=== PATIENT | male | born 1975 | race Two or more races ===

== ENCOUNTER 2021-01-26 16:49 | Inpatient (IN) | payer BC ==
[2021-01-26 20:11] VITALS: BMI 19.5
[2021-01-27] MEDS ORDERED: BISMUTH SUBSALICYLATE 524 MG/30 ML PO PRN (02:35)
[2021-01-27] MEDS ORDERED: MAGNESIUM CITRATE 300 ML BOTTLE PO PRN (02:35)
[2021-01-27] MEDS ORDERED: ACETAMINOPHEN 325 MG TABLET (FP) PO PRN ×2 (02:35)
[2021-01-27] MEDS ORDERED: ONDANSETRON *ODT* 4 MG TABLET SL PRN (02:35)
[2021-01-27] MEDS ORDERED: MAG HYDROX/AL HYDROX/SIMETH 30 ML UNIT-DOSE CUP PO PRN (02:35)
[2021-01-27] MEDS ORDERED: METHOCARBAMOL 500 MG TABLET PO PRN (02:35)
[2021-01-27] MEDS ORDERED: MAGNESIUM HYDROX 2400MG/30ML ORAL SUSPENSION 30 ML CUP PO PRN (02:35)
[2021-01-27] MEDS ORDERED: MENTHOL/PHENOL 1 EACH UD MM PRN (02:35)
[2021-01-27] MEDS ORDERED: IBUPROFEN 400 MG TABLET (FP) PO PRN (02:35)
[2021-01-27] MEDS ORDERED: diazePAM 5 MG TABLET PO PRN (02:39)
[2021-01-27] MEDS ORDERED: diazePAM 5 MG TABLET ONE ×2 (05:49→12:32)
[2021-01-27] MEDS: diazePAM 5 MG TABLET PO SCH ×4 (05:52→22:12)
[2021-01-27] MEDS ORDERED: methaDONE HCL 40 MG DISPERSABLE TABLET PO SCH (10:00)
[2021-01-27] MEDS: PRENATAL VITAMINS W/ FOLIC ACID TABLET (FP) PO SCH (12:33)
[2021-01-27] MEDS: NICOTINE POLACRILEX 2 MG GUM BUC PRN (13:13)
[2021-01-27] MEDS ORDERED: methaDONE HCL 10 MG TABLET ONE (13:14)
[2021-01-27] MEDS: methaDONE 80 MG, methaDONE 20 MG PO SCH (13:15)
[2021-01-27] MEDS ORDERED: methaDONE HCL 40 MG DISPERSABLE TABLET ONE (13:15)
[2021-01-27] MEDS: NICOTINE 14 MG/24 HOURS TOPICAL PATCH TD SCH (13:17)
[2021-01-27] MEDS ORDERED: MELATONIN 5 MG TABLETS PO SCH (22:00)
[2021-01-27] MEDS: THIAMINE HCL 100 MG TABLET (FP) PO SCH (22:12)
[2021-01-28] MEDS ORDERED: methaDONE HCL 10 MG TABLET ONE (03:59)
[2021-01-28] MEDS ORDERED: methaDONE HCL 40 MG DISPERSABLE TABLET ONE (04:00)
[2021-01-28] MEDS: methaDONE 80 MG, methaDONE 20 MG PO SCH (05:36)
[2021-01-28] MEDS: diazePAM 5 MG TABLET PO SCH ×3 (05:37→22:13)
[2021-01-28] MEDS: PRENATAL VITAMINS W/ FOLIC ACID TABLET (FP) PO SCH (10:10)
[2021-01-28] MEDS: NICOTINE 14 MG/24 HOURS TOPICAL PATCH TD SCH (10:11)
[2021-01-28] MEDS: NICOTINE POLACRILEX 2 MG GUM BUC PRN (10:11)
[2021-01-28 10:21] LABS: ALBUMIN 3.4 g/dl (3.4-5.0); BLOOD UREA NITROGEN 13.2 mg/dL (7-18); CALCIUM 8.8 mg/dL (8.5-10.1); HEMATOCRIT 37.9 % (35.4-49); HEMOGLOBIN 12.8 GM/dL (11.7-16.9); MCH 29.8 pg (25.7-33.7); MCHC 33.8 g/dl (32.0-35.9); MEAN CELL VOLUME 88.4 fl (80-96); MEAN PLT VOLUME 7.7 fl (7.5-11.1); PLATELET COUNT 228 10^3/uL (134-434); RBC 4.28 M/mm3 (4.00-5.60)
[2021-01-28 10:24] LABS: CREATININE 0.9 mg/dL (0.55-1.3)
[2021-01-28 10:26] LABS: BILIRUBIN,TOTAL 0.3 mg/dL (0.2-1); TOT PROT 7.2 g/dl (6.4-8.2)
[2021-01-28 10:50] LABS: SYPHILIS W/ RPR CONF NON-REACTIVE (NONREACTIVE)
[2021-01-28] MEDS: THIAMINE HCL 100 MG TABLET (FP) PO SCH (22:13)
[2021-01-28] MEDS: SUVOREXANT 10 MG TABLET PO PRN (22:14)
[2021-01-29] MEDS ORDERED: methaDONE HCL 10 MG TABLET ONE (03:11)
[2021-01-29] MEDS ORDERED: methaDONE HCL 40 MG DISPERSABLE TABLET ONE (03:11)
[2021-01-29] MEDS: diazePAM 5 MG TABLET PO SCH ×2 (05:35→18:12)
[2021-01-29] MEDS: methaDONE 80 MG, methaDONE 20 MG PO SCH (05:35)
[2021-01-29] MEDS: PRENATAL VITAMINS W/ FOLIC ACID TABLET (FP) PO SCH (10:14)
[2021-01-29] MEDS: NICOTINE POLACRILEX 2 MG GUM BUC PRN (10:14)
[2021-01-29] MEDS: NICOTINE 14 MG/24 HOURS TOPICAL PATCH TD SCH (10:37)
[2021-01-29] MEDS: SUVOREXANT 10 MG TABLET PO PRN (22:25)
[2021-01-29] MEDS: THIAMINE HCL 100 MG TABLET (FP) PO SCH (22:26)
[2021-01-30 00:18] LABS: HIV INTERPRETATION NEGATIVE (NEGATIVE)
[2021-01-30] MEDS ORDERED: methaDONE HCL 40 MG DISPERSABLE TABLET ONE (03:23)
[2021-01-30] MEDS ORDERED: methaDONE HCL 10 MG TABLET ONE (03:23)
[2021-01-30] MEDS ORDERED: diazePAM 5 MG TABLET PO ONE (06:00)
[2021-01-30] MEDS: methaDONE 80 MG, methaDONE 20 MG PO SCH (06:17)
[2021-01-30 06:49] VITALS: BP 104/75
[2021-01-30 09:14] VITALS: PULSE 68; TEMP 96.9
[2021-01-30] MEDS: NICOTINE 14 MG/24 HOURS TOPICAL PATCH TD SCH (10:07)
[2021-01-30] MEDS: PRENATAL VITAMINS W/ FOLIC ACID TABLET (FP) PO SCH (10:07)
== END 2021-01-30 10:20 | disposition home or self-care (01) | DRG 773 ==
LOC: YASAS 16:49 → Y3N 01-27 12:19
PROVIDERS: ADMIT Allergy & Immunology; ATTEND Allergy & Immunology
PROC: HZ2ZZZZ Detoxification Services for Substance Abuse Treatment (ICD-10-PCS; principal; 2021-01-27)
DX: F10.230 Alcohol dependence with withdrawal, uncomplicated (principal); F11.20 Opioid dependence, uncomplicated; F13.230 Sedative, hypnotic or anxiolytic dependence with withdrawal, uncomplicated; F14.20 Cocaine dependence, uncomplicated; F12.20 Cannabis dependence, uncomplicated; F17.210 Nicotine dependence, cigarettes, uncomplicated; F19.24 Other psychoactive substance dependence with psychoactive substance-induced mood disorder; F39 Unspecified mood [affective] disorder; L98.8 Other specified disorders of the skin and subcutaneous tissue; R63.4 Abnormal weight loss; Z68.1 Body mass index [BMI] 19.9 or less, adult; Z86.19 Personal history of other infectious and parasitic diseases; Z63.4 Disappearance and death of family member; Z56.0 Unemployment, unspecified; Z59.0 Homelessness
CPT/HCPCS: 36415; 80053; 85027; 86780; 87389; 93005; 93010; C9803; U0003; U0005

== ENCOUNTER 2022-08-06 18:30 | Inpatient (IN) | payer BC ==
[2022-08-06 21:03] VITALS: BMI 18.8
[2022-08-06] MEDS ORDERED: MAG HYDROX/AL HYDROX/SIMETH 30 ML UNIT-DOSE CUP PO PRN (21:22)
[2022-08-06] MEDS ORDERED: ACETAMINOPHEN 325 MG TABLET (FP) PO PRN (21:22)
[2022-08-06] MEDS ORDERED: BENZOCAINE/MENTHOL (CHLORASEPTIC ) LOZENGE MM PRN (21:22)
[2022-08-06] MEDS ORDERED: IBUPROFEN 400 MG TABLET (FP) PO PRN (21:22)
[2022-08-06] MEDS ORDERED: guaiFENesin 200 MG/10 ML 10 ML UNIT-DOSE CUPS PO PRN (21:22)
[2022-08-06] MEDS ORDERED: LOPERAMIDE HCL 2 MG CAPSULE PO PRN (21:22)
[2022-08-06] MEDS ORDERED: P-EPHED 60MG/TRIPROLIDI 2.5MG TABLET PO PRN (21:22)
[2022-08-06] MEDS ORDERED: QUEtiapine FUMARATE 200 MG TABLET PO ONE (23:56)
[2022-08-07] MEDS: THIAMINE HCL 100 MG TABLET (FP) PO SCH ×2 (00:40→21:22)
[2022-08-07] MEDS: methaDONE HCL 40 MG DISPERSABLE TABLET PO SCH (08:53)
[2022-08-07] MEDS: PRENATAL VITAMINS W/ FOLIC ACID TABLET (FP) PO SCH (10:47)
[2022-08-07 11:46] LABS: EPI CELLS 10 /uL (0-25.1); HYALINE CASTS 0 /uL (0-3.1); PH,URINE 7.5 (5.0-8.0); URINE APPEARANCE CLEAR; URINE BACTERIA 36 /uL (0-1359); URINE BILIRUBIN NEGATIVE (NEGATIVE); URINE COLOR YELLOW; URINE GLUCOSE (UA) NEGATIVE (NEGATIVE); URINE KETONE NEGATIVE (NEGATIVE); URINE LEUK ESTERASE 2+ (NEGATIVE); URINE NITRITE NEGATIVE (NEGATIVE); URINE PROTEIN NEGATIVE (NEGATIVE); URINE RBC 1 /uL (0-23.9); URINE UROBILINOGEN 0.2 mg/dL (0.2-1.0); URINE WBC 84 /uL (0-25.8)
[2022-08-07 12:32] LABS: HEMATOCRIT 42.1 % (35.4-49); HEMOGLOBIN 13.7 GM/dL (11.7-16.9); MCH 29.7 pg (25.7-33.7); MCHC 32.6 g/dl (32.0-35.9); MEAN CELL VOLUME 91.1 fl (80-96); MEAN PLT VOLUME 8.5 fl (7.5-11.1); PLATELET COUNT 214 10^3/uL (134-434); RBC 4.62 M/mm3 (4.00-5.60); RDW 14.3 % (11.9-15.9); WHITE BLOOD COUNT 3.3 K/mm3 (4.0-10.0)
[2022-08-07 13:01] LABS: TOT PROT 7.4 g/dl (6.4-8.2)
[2022-08-07 13:03] LABS: CALCIUM 9.1 mg/dL (8.5-10.1)
[2022-08-07 13:04] LABS: ALBUMIN 3.9 g/dl (3.4-5.0); BLOOD UREA NITROGEN 15.5 mg/dL (7-18)
[2022-08-07 13:08] LABS: CREATININE 0.9 mg/dL (0.55-1.3)
[2022-08-07 13:09] LABS: BILIRUBIN,TOTAL 0.3 mg/dL (0.2-1)
[2022-08-07] MEDS: MELATONIN 5 MG TABLETS PO PRN (21:22)
[2022-08-07] MEDS: QUEtiapine FUMARATE 200 MG TABLET PO SCH (21:22)
[2022-08-08] MEDS: methaDONE HCL 40 MG DISPERSABLE TABLET PO SCH (06:21)
[2022-08-08] MEDS: PRENATAL VITAMINS W/ FOLIC ACID TABLET (FP) PO SCH (10:49)
[2022-08-08] MEDS: FLUoxetine HCL 20 MG CAPSULE PO SCH (10:50)
[2022-08-08] MEDS: QUEtiapine FUMARATE 200 MG TABLET PO SCH (21:34)
[2022-08-08] MEDS: MELATONIN 5 MG TABLETS PO PRN (21:34)
[2022-08-08] MEDS: THIAMINE HCL 100 MG TABLET (FP) PO SCH (21:34)
[2022-08-09] MEDS: methaDONE HCL 40 MG DISPERSABLE TABLET PO SCH (06:12)
[2022-08-09] MEDS: FLUoxetine HCL 20 MG CAPSULE PO SCH (10:32)
[2022-08-09] MEDS: PRENATAL VITAMINS W/ FOLIC ACID TABLET (FP) PO SCH (10:32)
[2022-08-09] MEDS: MELATONIN 5 MG TABLETS PO PRN (21:34)
[2022-08-09] MEDS: QUEtiapine FUMARATE 200 MG TABLET PO SCH (21:34)
[2022-08-09] MEDS: THIAMINE HCL 100 MG TABLET (FP) PO SCH (21:34)
[2022-08-10] MEDS: methaDONE HCL 40 MG DISPERSABLE TABLET PO SCH (06:01)
[2022-08-10] MEDS: PRENATAL VITAMINS W/ FOLIC ACID TABLET (FP) PO SCH (10:35)
[2022-08-10] MEDS: FLUoxetine HCL 20 MG CAPSULE PO SCH (10:35)
[2022-08-10] MEDS: QUEtiapine FUMARATE 200 MG TABLET PO SCH (21:04)
[2022-08-10] MEDS: MELATONIN 5 MG TABLETS PO PRN (21:04)
[2022-08-10] MEDS: THIAMINE HCL 100 MG TABLET (FP) PO SCH (21:04)
[2022-08-11] MEDS: methaDONE HCL 40 MG DISPERSABLE TABLET PO SCH (06:21)
[2022-08-11] MEDS: PRENATAL VITAMINS W/ FOLIC ACID TABLET (FP) PO SCH (10:27)
[2022-08-11] MEDS: FLUoxetine HCL 20 MG CAPSULE PO SCH (10:27)
[2022-08-11] MEDS: THIAMINE HCL 100 MG TABLET (FP) PO SCH (21:31)
[2022-08-11] MEDS: MELATONIN 5 MG TABLETS PO PRN (21:31)
[2022-08-11] MEDS: QUEtiapine FUMARATE 200 MG TABLET PO SCH (21:31)
[2022-08-12] MEDS: methaDONE HCL 40 MG DISPERSABLE TABLET PO SCH (05:47)
[2022-08-12] MEDS: PRENATAL VITAMINS W/ FOLIC ACID TABLET (FP) PO SCH (10:17)
[2022-08-12] MEDS: FLUoxetine HCL 20 MG CAPSULE PO SCH (10:17)
[2022-08-12] MEDS: THIAMINE HCL 100 MG TABLET (FP) PO SCH (21:02)
[2022-08-12] MEDS: MAGNESIUM HYDROX 2400MG/30ML ORAL SUSPENSION 30 ML CUP PO PRN (21:02)
[2022-08-12] MEDS: QUEtiapine FUMARATE 200 MG TABLET PO SCH (21:02)
[2022-08-12] MEDS: MELATONIN 5 MG TABLETS PO PRN (21:02)
[2022-08-13] MEDS: methaDONE HCL 40 MG DISPERSABLE TABLET PO SCH (06:05)
[2022-08-13] MEDS: FLUoxetine HCL 20 MG CAPSULE PO SCH (09:33)
[2022-08-13] MEDS: PRENATAL VITAMINS W/ FOLIC ACID TABLET (FP) PO SCH (09:33)
[2022-08-13] MEDS: QUEtiapine FUMARATE 200 MG TABLET PO SCH (21:52)
[2022-08-13] MEDS: THIAMINE HCL 100 MG TABLET (FP) PO SCH (21:52)
[2022-08-13] MEDS: MELATONIN 5 MG TABLETS PO PRN (21:52)
[2022-08-14] MEDS: methaDONE HCL 40 MG DISPERSABLE TABLET PO SCH (06:16)
[2022-08-14] MEDS: POLYETHYLENE GLYCOL (HEALTHYLAX) 3350 17 GM PACKET PO PRN (06:17)
[2022-08-14] MEDS: FLUoxetine HCL 20 MG CAPSULE PO SCH (10:33)
[2022-08-14] MEDS: PRENATAL VITAMINS W/ FOLIC ACID TABLET (FP) PO SCH (10:33)
[2022-08-14] MEDS: MELATONIN 5 MG TABLETS PO PRN (21:25)
[2022-08-14] MEDS: QUEtiapine FUMARATE 200 MG TABLET PO SCH (21:25)
[2022-08-14] MEDS: THIAMINE HCL 100 MG TABLET (FP) PO SCH (21:25)
[2022-08-15] MEDS: methaDONE HCL 40 MG DISPERSABLE TABLET PO SCH (06:51)
[2022-08-15] MEDS: POLYETHYLENE GLYCOL (HEALTHYLAX) 3350 17 GM PACKET PO PRN (06:52)
[2022-08-15] MEDS: FLUoxetine HCL 20 MG CAPSULE PO SCH (10:39)
[2022-08-15] MEDS: PRENATAL VITAMINS W/ FOLIC ACID TABLET (FP) PO SCH (10:39)
[2022-08-15] MEDS: QUEtiapine FUMARATE 200 MG TABLET PO SCH (21:16)
[2022-08-15] MEDS: THIAMINE HCL 100 MG TABLET (FP) PO SCH (21:16)
[2022-08-15] MEDS: MELATONIN 5 MG TABLETS PO PRN (21:16)
[2022-08-16] MEDS: POLYETHYLENE GLYCOL (HEALTHYLAX) 3350 17 GM PACKET PO PRN (06:21)
[2022-08-16] MEDS: methaDONE HCL 40 MG DISPERSABLE TABLET PO SCH (06:21)
[2022-08-16] MEDS: PRENATAL VITAMINS W/ FOLIC ACID TABLET (FP) PO SCH (09:56)
[2022-08-16] MEDS: FLUoxetine HCL 20 MG CAPSULE PO SCH (09:57)
[2022-08-16] MEDS: MAGNESIUM HYDROX 2400MG/30ML ORAL SUSPENSION 30 ML CUP PO PRN (09:58)
[2022-08-16] MEDS: THIAMINE HCL 100 MG TABLET (FP) PO SCH (21:11)
[2022-08-16] MEDS: QUEtiapine FUMARATE 200 MG TABLET PO SCH (21:11)
[2022-08-17] MEDS: POLYETHYLENE GLYCOL (HEALTHYLAX) 3350 17 GM PACKET PO PRN (05:59)
[2022-08-17] MEDS: methaDONE HCL 40 MG DISPERSABLE TABLET PO SCH (06:00)
[2022-08-17] MEDS: PRENATAL VITAMINS W/ FOLIC ACID TABLET (FP) PO SCH (10:20)
[2022-08-17] MEDS: FLUoxetine HCL 20 MG CAPSULE PO SCH (10:20)
[2022-08-17] MEDS: THIAMINE HCL 100 MG TABLET (FP) PO SCH (21:09)
[2022-08-17] MEDS: QUEtiapine FUMARATE 200 MG TABLET PO SCH (21:09)
[2022-08-18] MEDS: POLYETHYLENE GLYCOL (HEALTHYLAX) 3350 17 GM PACKET PO PRN (06:02)
[2022-08-18] MEDS: methaDONE HCL 40 MG DISPERSABLE TABLET PO SCH (06:03)
[2022-08-18] MEDS: PRENATAL VITAMINS W/ FOLIC ACID TABLET (FP) PO SCH (10:04)
[2022-08-18] MEDS: FLUoxetine HCL 20 MG CAPSULE PO SCH (10:05)
[2022-08-18] MEDS: MELATONIN 5 MG TABLETS PO PRN (21:37)
[2022-08-18] MEDS: QUEtiapine FUMARATE 200 MG TABLET PO SCH (21:37)
[2022-08-18] MEDS: THIAMINE HCL 100 MG TABLET (FP) PO SCH (21:37)
[2022-08-19] MEDS: methaDONE HCL 40 MG DISPERSABLE TABLET PO SCH (05:48)
[2022-08-19 06:47] VITALS: RESP 18
[2022-08-19] MEDS: FLUoxetine HCL 20 MG CAPSULE PO SCH (10:04)
[2022-08-19] MEDS: PRENATAL VITAMINS W/ FOLIC ACID TABLET (FP) PO SCH (10:04)
[2022-08-19] MEDS ORDERED: BENZOCAINE 20 % GEL TUBE MM PRN (14:37)
[2022-08-19] MEDS: AMOX TR/POT CLAV 500MG/125MG TABLETS (FP) PO SCH (18:24)
[2022-08-19] MEDS: QUEtiapine FUMARATE 200 MG TABLET PO SCH (21:19)
[2022-08-19] MEDS: THIAMINE HCL 100 MG TABLET (FP) PO SCH (21:19)
[2022-08-19] MEDS: MELATONIN 5 MG TABLETS PO PRN (21:19)
[2022-08-20] MEDS: methaDONE HCL 40 MG DISPERSABLE TABLET PO SCH (05:58)
[2022-08-20 07:07] VITALS: BP 118/79; PULSE 89; TEMP 97.1
[2022-08-20] MEDS: AMOX TR/POT CLAV 500MG/125MG TABLETS (FP) PO SCH (07:16)
== END 2022-08-20 09:07 | disposition home or self-care (01) | DRG 772 ==
LOC: YASAS 18:30 → Y3W 23:42
PROVIDERS: ADMIT Allergy & Immunology; ATTEND Allergy & Immunology
PROC: HZ42ZZZ Group Counseling for Substance Abuse Treatment, Cognitive-Behavioral (ICD-10-PCS; principal; 2022-08-16)
DX: F11.20 Opioid dependence, uncomplicated (principal); F14.20 Cocaine dependence, uncomplicated; F12.20 Cannabis dependence, uncomplicated; F17.220 Nicotine dependence, chewing tobacco, uncomplicated; F19.282 Other psychoactive substance dependence with psychoactive substance-induced sleep disorder; F31.9 Bipolar disorder, unspecified; F39 Unspecified mood [affective] disorder; F41.9 Anxiety disorder, unspecified; K04.7 Periapical abscess without sinus; K02.9 Dental caries, unspecified; Z86.19 Personal history of other infectious and parasitic diseases
CPT/HCPCS: 36415; 80053; 81003; 82962; 85027; 86780; 87811; C9803-CS; U0003; U0005